=== PATIENT | female | born 1945 | race Caucasian/White ===

== ENCOUNTER 2023-06-20 10:10 | Day surgery (SDC) | payer MEDICARE, OTHER ==
[2023-06-20] MEDS ORDERED: BUPIVACAINE 0.5% VIAL IJ ONE (10:11)
[2023-06-20] MEDS ORDERED: Depo-Medrol 40 MG/ML IM ONE (10:11)
[2023-06-20] MEDS ORDERED: DIPRIVAN 200 MG/20 ML IV ONE (12:42)
[2023-06-20] MEDS ORDERED: Lactated Ringers 1,000 ML IV ONE (13:12)
--- NOTE | 2023-06-20 14:36 | XRAY ---
18 seconds of fluoroscopy was used in surgery for a bilateral sacroiliac joint injection.
--- NOTE | 2023-06-20 14:38 | XRAY ---
Indication: Bilateral SI joint injection Intraoperative fluoroscopy provided for 18 seconds. 4 digital spot images submitted for interpretation demonstrates posterior needle tip projecting over the expected left and right SI joint. Correlate with intraoperative findings/report.
== END 2023-06-20 13:10 | disposition home or self-care (01) ==
LOC: SDC-PAIN 10:10
PROVIDERS: ATTEND Psychiatry & Neurology Pain Medicine
DX: M46.1 Sacroiliitis, not elsewhere classified (principal); E11.9 Type 2 diabetes mellitus without complications; Z79.899 Other long term (current) drug therapy
CPT/HCPCS: 01992; 27096; 72202; 77002; 82947; 99100; G0260; J1030; J2704

== ENCOUNTER 2025-06-03 12:00 | Day surgery (SDC) | payer MEDICARE, OTHER ==
[2025-06-03] MEDS ORDERED: LIDOCAINE HCL 2% 100 MG/5 ML IJ ONE (12:01)
[2025-06-03] MEDS ORDERED: Depo-Medrol 40 MG/ML IM ONE (12:01)
[2025-06-03] MEDS ORDERED: propofoL IV ONE (14:09)
[2025-06-03] MEDS ORDERED: Lactated Ringers 1,000 ML IV ONE (16:26)
--- NOTE | 2025-06-03 16:56 | XRAY ---
Indication: Bilateral L4-S1 MBB. Intraoperative fluoroscopy provided for 24 seconds. 4 digital spot image submitted for interpretation demonstrates posterior needle tips projecting over expected left and right L4-S1 nerve roots. Correlate with intraoperative findings/report. Incidental incompletely visualized multilevel lumbar fusion hardware and right epidural generator.
--- NOTE | 2025-06-03 17:36 | XRAY ---
24 seconds of fluoroscopy was used in surgery for a bilateral L4-S1 MBB.
== END 2025-06-03 14:45 | disposition home or self-care (01) ==
LOC: SDC-PAIN 12:00
PROVIDERS: ATTEND Psychiatry & Neurology Pain Medicine
DX: M47.817 Spondylosis without myelopathy or radiculopathy, lumbosacral region (principal); E11.9 Type 2 diabetes mellitus without complications

== ENCOUNTER 2025-06-10 13:10 | Day surgery (SDC) | payer MEDICARE, OTHER ==
[2025-06-10] MEDS ORDERED: Depo-Medrol 40 MG/ML IM ONE (13:11)
[2025-06-10] MEDS ORDERED: BUPIVACAINE 0.5% VIAL IJ ONE (13:11)
[2025-06-10] MEDS ORDERED: propofoL IV ONE (15:32)
[2025-06-10] MEDS ORDERED: Lactated Ringers 1,000 ML IV ONE (16:34)
--- NOTE | 2025-06-10 16:54 | XRAY ---
Indication: Bilateral L4-S1 MBB. Intraoperative fluoroscopy provided for 38 seconds. 5 digital spot image submitted for interpretation demonstrates posterior needle tips projecting over expected left and right L4-S1 nerve roots. Correlate with intraoperative findings/report. Incidental incompletely visualized multilevel lumbar fusion hardware and right epidural generator.
--- NOTE | 2025-06-10 19:39 | XRAY ---
38 seconds of fluoroscopy were used in surgery for a bilateral L4-S1 MBB.
== END 2025-06-10 16:12 | disposition home or self-care (01) ==
LOC: SDC-PAIN 13:10
PROVIDERS: ATTEND Psychiatry & Neurology Pain Medicine
DX: M47.817 Spondylosis without myelopathy or radiculopathy, lumbosacral region (principal); E11.9 Type 2 diabetes mellitus without complications